=== PATIENT | male | born 1965 | race Caucasian/White ===

== ENCOUNTER → 2018-11-07 | Outpatient (CLI) | payer OTHER ==
[~2018-11-07] MED LIST: CARBITROL PO; COUMADIN 10MG T10 M1 PO; FLONASE; KLONOPIN1 MG PO; LIPITOR40 MG PO; NABUMETONE 750750 M1 PO; NEXIUM20 M1 PO; PROTONIX40 M1 PO; REQUIP XL2 MG PO; REQUIP2 MG PO; ZOLOFT50 MG PO
--- NOTE | ~2018-11-07 | EKG ---
[address] [address] ELECTROCARDIOGRAM REPORT Name: CHRISTINA LOPEZ [id number] Admission: 11/07/18 Attend Phys: Tatiana Jackson MD Discharge: Date of : 67 Report #: [id number] THIS REPORT FOR: //name// [facility] Test Date: 2018-11-07 Test Time: 06:56:35 Pat Name: CHRISTINA LOPEZ Department: Room: Gender: Administration Intern: jessi : 1965 Requested By: Tatiana Jackson Order Number: [id number] MD: Madhu Pop Measurements Intervals [place] Rate: 59 P: 23 WI: 179 QRS: 36 QRSD: 112 T: 29 QT: 428 QTc: 424 Interpretive Statements Sinus rhythm Incomplete right bundle branch block Compared to ECG 04/07/1998 17:15:00 No significant changes Electronically Signed On 11-07-2018 8:21:42 [employer] by Madhu Pop [email or web address] <ELECTRONICALLY SIGNED> By: Madhu Pop MD 11/07/18 [id number] [id number] Madhu Pop MD /EPI
== END | disposition home or self-care (01) ==
LOC: LITH 06:24
DX: N20.1 Calculus of ureter (principal); I10 Essential (primary) hypertension; E78.00 Pure hypercholesterolemia, unspecified; G47.33 Obstructive sleep apnea (adult) (pediatric); N40.0 Benign prostatic hyperplasia without lower urinary tract symptoms; K21.9 Gastro-esophageal reflux disease without esophagitis; F32.89 Other specified depressive episodes; F41.9 Anxiety disorder, unspecified; Z80.0 Family history of malignant neoplasm of digestive organs; Z79.01 Long term (current) use of anticoagulants; Z79.899 Other long term (current) drug therapy; Z98.890 Other specified postprocedural states